=== PATIENT | male | born 1930 | race Caucasian/White ===

== ENCOUNTER → 2018-04-26 | Outpatient (REF) | payer MEDICARE ==
[2018-04-26 12:42] LABS: HEMATOCRIT 37.8 % (39.0-50.0); HEMOGLOBIN 11.9 g/dl (14.0-18.0); IMMATURE GRANULOCYTES 0.2 % (0.0-5.0); MEAN CELL VOLUME 85.5 fL CALC (80.0-100.0); MEAN CORPUSCULAR HGB 26.9 pG CALC (26.0-32.0); MEAN CORPUSCULAR HGB CONC 31.5 g/L CALC (32.0-36.0); NEUT# 2.35 thou/uL (1.82-7.42); RED BLOOD COUNT 4.42 mill/uL (4.70-6.10); RED CELL DISTRI WIDTH 16.4 % (11.5-15.5)
[2018-04-26 13:12] LABS: ALKALINE PHOSPHATASE 50 u/l (38-126); ANION GAP 11 (6-22 (CALC)); BILIRUBIN, TOTAL 0.5 mg/dL (0.0-1.4); BUN 22 mg/dL (8-23); BUN/CREATININE RATIO 20 (12-20 (CALC)); CALCULATED LDLCHOLESTEROL 77 mg/dL (62-129 (CALC)); CARBON DIOXIDE 29 mmol/l (22-30); CHLORIDE 106 mmol/l (95-108); CHOLESTEROL HDL RATIO 3.9 (<4.4 (CALC)); CREATININE 1.1 mg/dL (0.7-1.3); GFR > 60 ML/MIN (>=60 (CALC)); GFR FOR AFR.AMER. > 60 ML/MIN (>=60 (CALC)); HDL CHOLESTEROL 35 mg/dL (>=40); SGOT/AST 26 u/l (19-48); SODIUM 141 mmol/l (137-146); TOTAL CHOLESTEROL 136 mg/dl (0-199); TOTAL PROTEIN 6.5 g/dL (6.3-8.2); TOTAL TRIGLYCERIDES 118 mg/dl (30-149); VLDL CHOLESTROL 24 mg/dl (0-38 (CALC))
[2018-04-26 13:15] LABS: POTASSIUM 5.3 mmol/l (3.5-5.1)
[2018-04-26 13:41] LABS: TSH, 3RD GENERATION 1.32 uIU/mL (0.47 - 4.68)
== END | disposition home or self-care (01) ==
LOC: LAB 12:08
PROVIDERS: ATTEND Internal Medicine
DX: I25.810 Atherosclerosis of coronary artery bypass graft(s) without angina pectoris (principal); I50.22 Chronic systolic (congestive) heart failure

== ENCOUNTER 2019-05-21 14:09 | Emergency (ER) | payer MEDICARE ==
[~2019-05-21] VITALS: Ht 167.6 cm; Wt 79.2 kg
[~2019-05-21 14:09] MED LIST: ASPIRIN81 MG PO; ATORVASTATIN CA40 MG PO; CARVEDILOL6.25 MG PO; DIAZEPAM2 MG PO; DOXYCYC MONO100 M2 PO; ISOSORB MONO60 M1 PO; NAPROSYN250 MG PO; PLAVIX75 MG PO; PREDNISONE50 MG PO
[2019-05-21] MEDS ORDERED: CYCLOBENZAPR5 MG PO (16:05)
[2019-05-21 16:27] VITALS: BP 141/67
== END 2019-05-21 16:27 | disposition home or self-care (01) ==
LOC: ED 14:09
DX: R51 Headache (principal); L98.9 Disorder of the skin and subcutaneous tissue, unspecified; I25.10 Atherosclerotic heart disease of native coronary artery without angina pectoris; I10 Essential (primary) hypertension; I25.2 Old myocardial infarction; Z95.5 Presence of coronary angioplasty implant and graft; Z95.1 Presence of aortocoronary bypass graft